=== PATIENT | female | born 1980 | race Caucasian/White ===

== ENCOUNTER → 2023-12-31 14:39 | Outpatient (REF) | payer OTHER, SELFPAY | LOC: WDC 14:39 | PROVIDERS: ATTENDING PHYSICIAN Physician Assistant Medical | DX: Z12.31 Encounter for screening mammogram for malignant neoplasm of breast (principal); R92.8 Other abnormal and inconclusive findings on diagnostic imaging of breast | CPT/HCPCS: 76642; 77063; 77067 ==

== ENCOUNTER → 2024-07-30 12:58 | Outpatient (REF) | payer OTHER, SELFPAY | LOC: WDC 12:58 | PROVIDERS: ATTENDING PHYSICIAN Physician Assistant Medical | DX: R92.30 Dense breasts, unspecified (principal) | CPT/HCPCS: 76641 ==

== ENCOUNTER → 2025-04-08 14:25 | Outpatient (REF) | payer OTHER, SELFPAY | LOC: WDC 14:25 | PROVIDERS: ATTENDING PHYSICIAN Physician Assistant Medical | DX: Z12.31 Encounter for screening mammogram for malignant neoplasm of breast (principal); R92.8 Other abnormal and inconclusive findings on diagnostic imaging of breast | CPT/HCPCS: 76642; 77063; 77067 ==

== ENCOUNTER → 2025-08-11 08:40 | Outpatient (REF) | payer OTHER, SELFPAY | LOC: WDC 08:40 | PROVIDERS: ATTENDING PHYSICIAN Physician Assistant Medical | DX: R92.30 Dense breasts, unspecified (principal) | CPT/HCPCS: 76641 ==

== ENCOUNTER 2025-08-14 08:41 | Emergency (ER) | payer OTHER, SELFPAY ==
[2025-08-14 08:46] VITALS: BP 109/78
--- NOTE | 2025-08-14 10:40 | ED.GENMED ---
History of Present Illness
General
Chief Complaint: Back Pain
Time Seen by Provider: 08/14/25 09:12
History of Present Illness
History of Present Illness:
45-year-old female without significant past medical history presenting for right-sided back pain. Patient reports symptoms started last evening. Denies any known significant injury. Pain is in the right gluteal region. She tried ibuprofen with
minimal relief. Denies weakness or numbness to her extremities. Denies issues urinating or any pain with urination. Does note prior history of back issues in the past, however not to this extent. Denies abdominal pain. Denies chest pain or
difficulty breathing. Denies any trauma. Denies additional acute medical complaints
Past History
Past History
ED Past Medical History: Psychiatric (anxiety and depression); Negative Asthma, CAD, Cancer, CHF, COPD, HTN, Hypercholesterolemia, IDDM, NIDDM or ID
ED Past Surgical History: and Other (Breast augmentation)
Social History
Tobacco: Non-smoker
Alcohol: None
Drug: None
Personal:
Living: with family
Employment: Employed
Family History
Family History: Negative Early CAD
Phy Exam
Physical Exam
Physical Exam:
General: Well-appearing, no clinical signs of dehydration, nontoxic and in no acute distress
HEENT: protecting airway
Neck: appears supple
CV: Normal heart rate, regular rhythm
Resp: No accessory muscle use, no increased work of breathing, lungs clear to auscultation bilaterally
Abd: No distention
Extremities: No deformities, no swelling, range of motion intact. No midline spinal tenderness. Mild tenderness to the right gluteal region
Neuro: alert, no focal neurologic deficit
: deferred
Rectal: deferred
Psych: Normal affect
Skin: Intact
Course
Orders/Labs/Results
Orders:
Orders
08/14/25 10:36
Dexamethasone [Decadron] 10 mg PO NOW STA
Ketorolac [Toradol] 15 mg IM NOW STA
Vital Signs
Initial and Last Documented VS:
Initial Vital Signs
Temp Pulse Resp BP Pulse Ox
97.5 F 78 16 109/78 100
08/14/25 08:46 08/14/25 08:46 08/14/25 08:46 08/14/25 08:46 08/14/25 08:46
Last Documented Vital Signs
Temp Pulse Resp BP Pulse Ox
97.5 F 78 16 109/78 100
08/14/25 08:46 08/14/25 08:46 08/14/25 08:46 08/14/25 08:46 08/14/25 08:46
MDM/Problems Addressed
MDM/Problems Addressed:
45-year-old female presenting for right sided back pain. Vital signs on arrival are normal.
On exam patient resting comfortably, no acute distress or discomfort. Physical exam and symptom presentation appears most consistent with acute sciatica. Patient is focally tender to the right gluteal region, overlying the piriformis. No
concerning features on exam. Do not suspect any concerning etiology to patient's presenting symptoms. Do not suspect any spinal fracture in the absence of any direct trauma, and no midline spinal tenderness. No fever, systemic symptoms, or midline
tenderness, without concern for spinal abscess or infection. No red flag such as bowel or bladder incontinence, focal weakness, or any sensory deficits on exam, without present concern for spinal compression. Will treat therapeutically with
Toradol and Decadron. Otherwise feel stable for discharge with outpatient supportive therapy. Will prescribe ibuprofen, steroids, cyclobenzaprine. Return precautions discussed and patient verbalized understanding
*Pulse Oximetry
SaO2: 100
Oxygen Mode of Delivery: Room air
Patient hypoxic: no
*Critical Care Note
Total Time (30-74mins, 75-104mins- exclusive of procedures): Not Applicable
ED Attending Note
-
Portions of this chart may have been created with voice recognition software.� Occasional wrong word or��sound alike� substitutions may have occurred due to the inherent limitations of voice recognition software.
Discharge Plan
Departure
Prescriptions:
No Action
albuterol sulfate 1 PUFF HFA aerosol inhaler
1 - 2 puff inhalation .[id number] PRN (Reason: WHEEZING) Qty: 1 0RF
Referrals:
Naheed Mcgregor PA-C [Family Provider, Family Practice]
Interventions
Interventions:
*Risk Screen - Suicide Last Done: 08/14/25 08:46
Discharge Date and Time
Print Language: SLOV[place]
[2025-08-14] MEDS: DECADRON 10 MG PO (10:50)
[2025-08-14] MEDS: TORADOL 15 MG IM (10:51)
== END 2025-08-14 11:06 | disposition home or self-care (01) ==
LOC: EMR 08:41
PROVIDERS: EMERGENCY PHYSICIAN Student in an Organized Health Care Education/Training Program; FAMILY PHYSICIAN Physician Assistant Medical
DX: M54.31 Sciatica, right side (principal); F41.9 Anxiety disorder, unspecified; F32.A Depression, unspecified
CPT/HCPCS: 99284; 96372